=== PATIENT | male | born 1970 | race Two or more races ===

== ENCOUNTER 2020-10-13 15:42 | Emergency (ER) | payer MEDICAID, SELFPAY ==
--- NOTE | ~2020-10-13 | XR_ITS ---
EXAMINATION: PORTABLE CHEST 1 VIEW CLINICAL INFORMATION: chest pain cough sob . COMPARISON: 11/06/2008. TECHNIQUE: Portable frontal view of the chest was obtained. FINDINGS: The lungs are well expanded. No focal infiltrate, effusion, edema, or pneumothorax. Cardiac and mediastinal silhouettes are within normal limits for technique. No acute bony abnormality seen. XR/XR chest 1V IMPRESSION: No evidence of acute disease.
[2020-10-13 16:08] VITALS: BP 142/86; PULSE 88; RESP 20; TEMP 36.6; O2SAT 96; BMI 28.1
[2020-10-13 17:06] LABS: COVID-19 Test Positive (Negative); IDNOW Serial# 9DD0AD1C
[2020-10-13 17:30] LABS: Anion Gap 15 (12-20); Blood Urea Nitrogen 10 mg/dL (9-16); Calcium 8.9 mg/dL (8.4-10.2); Carbon Dioxide 23 mmol/L (22-29); Chloride 107 mmol/L (96-108); Creatinine Clr Calc Pharmacy 99.3; Estimated Glomerular Filt Rate > 60; Glucose Random 86 mg/dL (60-115); Potassium 4.3 mmol/L (3.3-5.1); Sodium 141 mmol/L (135-145)
--- NOTE | 2020-10-13 18:45 | ECG_ITS ---
Test Reason : CHEST PAIN Blood Pressure : / mmHG Vent. Rate : 065 BPM Atrial Rate : 065 BPM P-R Int : 112 ms QRS Dur : 074 ms QT Int : 410 ms P-R-T Axes : 026 024 011 degrees QTc Int : 426 ms Normal sinus rhythm Normal ECG When compared with ECG of 06-NOV-2008 09:07, Vent. rate has decreased BY 35 BPM QRS axis Shifted left T wave inversion less evident in Inferior leads Referred By: Osman Hammer Electronically Signed By:LAURA HAGEN
--- NOTE | 2020-10-13 19:09 | ED.URI ---
HPI - URI/Sore Throat General Chief Complaint: Upper Respiratory Symptoms Stated Complaint: cp, sob Time Seen by Provider: 10/13/20 18:37 Source: patient Mode of arrival: ambulatory Limitations: no limitations History of Present Illness HPI Narrative: Patient presents to the ED for coughing, chest pain, shortness of breath for the past 2 days. Patient unaware of any exposures to COVID. Patient denies any swelling of lower extremity, coughing up blood, or weakness Related Data Allergies Allergy/AdvReac Type Severity Reaction Status Date / Time diazepam [From VALIUM] Allergy Unknown ITCHING Unverified 04/09/20 16:00 Review of Systems Review of Systems: Yes all other systems are reviewed and are negative Constitutional: Constitutional: Reports as per HPI and Reports no additional constitutional complaints Eyes: Eyes: Reports as per HPI and Reports no additional eye complaints ENT: Reports system reviewed and no additional complaints, except as documented and Reports as per HPI Cardiovascular: Cardiovascular: Reports as per HPI, Reports no additional cardiovascular complaints and Reports chest pain Respiratory: Respiratory: Reports as per HPI, Reports no additional respiratory complaints and Reports cough Genitourinary: Genitourinary: Reports no additional male genitourinary complaints and Reports as per HPI Musculoskeletal: Musculoskeletal: Reports no additional musculoskeletal complaints and Reports as per HPI Neurologic: Reports system reviewed and no additional complaints, except as documented and Reports as per HPI Psychiatric: Psychiatric: Reports no additional psychiatric complaints and Reports as per HPI [facility] Social History Social History Advance Directives: No Advance Directives Information Provided: No Physical Exam Vital Signs: Vital Signs: Last Vital Signs Temp 98.9 F 10/13/20 20:56 Pulse 68 10/13/20 20:56 Resp 18 10/13/20 20:56 BP 127/79 10/13/20 20:56 Pulse Ox 100 10/13/20 20:56 Body Mass Index 28.1 Const: General: cooperative, healthy appearing, comfortable, no acute distress, well developed, alert, awake and Physically active Orientation/consciousness: patient oriented x3 HENMT: Head: Yes normal to inspection and Yes No palpable skull fracture present Eyes: General: appearance normal, both eyes and all related structures Neck: Neck: Yes normal visual inspection, Yes full ROM, Yes no lymphadenopathy, Yes no meningeal signs, Yes trachea midline, Yes supple and No tender Chest: Chest palpation & inspection: normal inspection of the chest and normal palpation of entire chest wall Resp: Effort & Inspection: normal respiratory effort and able to speak in complete sentences Auscultation: clear to auscultation bilaterally Cardio: Jugular venous distension: no JVD Heart sounds: S1 normal heart sound present and S2 normal heart sound present GI: Inspection: Yes normal to inspection and No abdominal wall ecchymosis Palpation (GI): Soft to palpation, not firm, nontender, no guarding and not rigid : General: No CVA tenderness and Yes no CVA tenderness Back/Spine/Pelvis: Back: no CVA tenderness, No CVA tenderness and No back tenderness Skin: General skin exam: no rashes or lesions noted and elasticity normal Neuro: General: patient oriented x3 and no meningeal signs Cranial nerves: Yes CN's II-XII intact bilaterally Extrem: General: Yes normal to inspection and Yes full ROM Psych: Appearance: grossly normal, well kempt and not disheveled Course Course Course Narrative: Patient had COVID swab that was positive. Patient's vital signs are stable. Reevaluation(s) Reevaluation #1: Patient's D-dimer negative. Vital signs stable. Troponin negative. Chest x-ray negative for pneumonia. EKG negative STEMI. Patient recommended quarantine for 14 days return to the ED she has chest pain or shortness of breath MDM - URI/Sore Throat Lab Data Result diagrams: 10/13/20 19:23 10/13/20 16:34 Labs: Lab Results 10/13/20 10/13/20 10/13/20 Range/Units 16:34 16:34 19:22 WBC (4.8-10.8) X10*3/uL RBC (4.60-5.80) X10*6/uL Hgb (14.0-18.0) g/dl Hct (42-52) % MCV (80-98) fL MCH (27.0-33.0) pg MCHC (31.0-36.0) g/dl RDW (11.0-16.0) % Plt Count (160-400) X10*3/uL MPV (9.4-12.4) fL Immature Gran % (Auto) (0.0-0.4) % Neut % (Auto) (45-73) % Lymph % (Auto) (20-40) % Dickinson % (Auto) (2-11) % Eos % (Auto) (0-4) % Baso % (Auto) (0-2) % Lymph # (Auto) (1.2-4.9) X10*3/uL Dickinson # (Auto) (0.1-1.2) X10*3/uL Eos # (Auto) (0.0-0.4) X10*3/uL Baso # (Auto) (0.0-0.2) X10*3/uL Abs Immat Gran (auto) (0.00-0.03) X10*3/uL Absolute Neuts (auto) (2.0-8.3) X10*3/uL Absolute Nucleated RBC (0.0-0.012) X10*3/uL Nucleated RBC % (auto) (0.0-0.2) /100WBC PT 12.8 (10.8-13.0) SEC INR 1.1 (0.9-1.1) APTT 37.8 (24.1-38.0) SEC D-Dimer < 200 NG/ML Sodium 141 (135-145) mmol/L Potassium 4.3 (3.3-5.1) mmol/L Chloride 107 (96-108) mmol/L Carbon Dioxide 23 (22-29) mmol/L Anion Gap 15 (12-20) BUN 10 (9-16) mg/dL Creatinine 0.95 (0.5-1.4) mg/dL Estim Creat Clear Calc 99.3 Estimated GFR > 60 Random Glucose 86 (60-115) mg/dL Calcium 8.9 (8.4-10.2) mg/dL Troponin I High Sens (<3.5-35.0) ng/L COVID-19 (TERELL) Positive A (Negative) COVID-19 Clin Com See Note 10/13/20 10/13/20 Range/Units 19:23 19:23 WBC 5.4 (4.8-10.8) X10*3/uL RBC 5.47 (4.60-5.80) X10*6/uL Hgb 17.1 (14.0-18.0) g/dl Hct 52.3 H (42-52) % MCV 95.6 (80-98) fL MCH 31.3 (27.0-33.0) pg MCHC 32.7 (31.0-36.0) g/dl RDW 12.5 (11.0-16.0) % Plt Count 180 (160-400) X10*3/uL MPV 10.0 (9.4-12.4) fL Immature Gran % (Auto) 0.2 (0.0-0.4) % Neut % (Auto) 46.8 (45-73) % Lymph % (Auto) 39.4 (20-40) % Dickinson % (Auto) 8.0 (2-11) % Eos % (Auto) 4.3 H (0-4) % Baso % (Auto) 1.3 (0-2) % Lymph # (Auto) 2.1 (1.2-4.9) X10*3/uL Dickinson # (Auto) 0.4 (0.1-1.2) X10*3/uL Eos # (Auto) 0.2 (0.0-0.4) X10*3/uL Baso # (Auto) 0.1 (0.0-0.2) X10*3/uL Abs Immat Gran (auto) 0.01 (0.00-0.03) X10*3/uL Absolute Neuts (auto) 2.5 (2.0-8.3) X10*3/uL Absolute Nucleated RBC 0.000 (0.0-0.012) X10*3/uL Nucleated RBC % (auto) 0.0 (0.0-0.2) /100WBC PT (10.8-13.0) SEC INR (0.9-1.1) APTT (24.1-38.0) SEC D-Dimer NG/ML Sodium (135-145) mmol/L Potassium (3.3-5.1) mmol/L Chloride (96-108) mmol/L Carbon Dioxide (22-29) mmol/L Anion Gap (12-20) BUN (9-16) mg/dL Creatinine (0.5-1.4) mg/dL Estim Creat Clear Calc Estimated GFR Random Glucose (60-115) mg/dL Calcium (8.4-10.2) mg/dL Troponin I High Sens 3.8 (<3.5-35.0) ng/L COVID-19 (TERELL) (Negative) COVID-19 Clin Com ECG Data Interpretation: Normal sinus rhythm. Normal EKG. Ventricular rate 65. Pr interval 112. QRS 74. QTC 426. Negative STEMI Discharge Plan Discharge Clinical Impression: COVID-19 Patient Disposition: Home, Self-Care Instructions: COVID-19 (Coronavirus Disease 2019) (ED) Additional Instructions: Return to ED immediately for any chest pain, shortness of breath, weakness, dizziness, any other concerning symptoms. Recommend 14 days self-isolation Referrals: [facility] [Primary Care Provider] - 2 days (Positive COVID) Stand Alone Forms: Work/School Release Interventions: ED Discharge Assessment Last Done: 10/13/20 20:58 Discharge Date/Time: 10/13/20 20:59 Print Language: Yoruba
[2020-10-13] MEDS: 0.9 % Sodium Chloride 1,000 ML 999 ML IV (19:20)
[2020-10-13 19:30] LABS: MANUAL DIFF FLAG NO
[2020-10-13 19:32] LABS: Basophils Absolute Auto 0.1 X10*3/uL (0.0-0.2); Basophils Percent Auto 1.3 % (0-2); Eosinophils Absolute Auto 0.2 X10*3/uL (0.0-0.4); Eosinophils Percent Auto 4.3 % (0-4); Hematocrit 52.3 % (42-52); Hemoglobin 17.1 g/dl (14.0-18.0); Imm Gran Abs Auto 0.01 X10*3/uL (0.00-0.03); Imm Gran Pct Auto 0.2 % (0.0-0.4); Lymphocytes Absolute Auto 2.1 X10*3/uL (1.2-4.9); Lymphocytes Percent Auto 39.4 % (20-40); Mean Corpuscular HGB Conc 32.7 g/dl (31.0-36.0); Mean Corpuscular Hemoglobin 31.3 pg (27.0-33.0); Mean Corpuscular Volume 95.6 fL (80-98); Monocytes Absolute Auto 0.4 X10*3/uL (0.1-1.2); Neutrophils Absolute Auto 2.5 X10*3/uL (2.0-8.3); Neutrophils Percent Auto 46.8 % (45-73); Platelet Count 180 X10*3/uL (160-400); Red Blood Count 5.47 X10*6/uL (4.60-5.80); Red Cell Distribution Width 12.5 % (11.0-16.0); White Blood Count 5.4 X10*3/uL (4.8-10.8)
--- NOTE | 2020-10-13 19:34 | PC.NURSE ---
Report taken from Zoila, this RN resuming care. Pt found sitting upright in the family room, speaking full sentences. IV established, labs obtained. IVF infusing per MAR. Pt aware of plan for CTA. Awaiting CT.
[2020-10-13 19:38] LABS: INTERNATIONAL NORM RATIO 1.1 (0.9-1.1); Prothrombin Time 12.8 SEC (10.8-13.0)
[2020-10-13 19:41] LABS: Partial Thromboplastin Time 37.8 SEC (24.1-38.0)
[2020-10-13 19:54] LABS: D Dimer < 200 NG/ML
[2020-10-13 19:55] LABS: Troponin-I High Sensitivity 3.8 ng/L (<3.5-35.0)
[2020-10-13 20:56] VITALS: BP 127/79; PULSE 68; RESP 18; TEMP 37.2; O2SAT 100
== END 2020-10-13 20:59 | disposition home or self-care (01) ==
PROVIDERS: Physician Assistant; Emergency Provider Internal Medicine
DX: U07.1 COVID-19 (principal); R07.9 Chest pain, unspecified
CPT/HCPCS: 36415; 71045; 80048; 84484; 85025; 85379; 85610; 85730; 87635; 93005; 96360; 99283; 99284

== ENCOUNTER 2022-10-03 17:45 | Emergency (ER) | payer MEDICAID, SELFPAY ==
[2022-10-03 18:48] VITALS: BP 154/105; PULSE 96; RESP 18; TEMP 36.2; O2SAT 99; BMI 28.1
--- NOTE | 2022-10-03 18:50 | ED_ITS ---
HPI - Ear Problem General Chief complaint: Ear Problems Stated complaint: ear infection? Time Seen by Provider: 10/03/22 18:50 Source: patient Mode of arrival: ambulatory Limitations: no limitations History of Present Illness HPI Narrative: 52-year-old male presenting to the ER with complaints of right ear pain for the past 2 days with a dry cough. Denies any fevers, trouble swallowing breathing, nasal congestion, sore throat, chest pain or shortness of breath, recent falls or trauma or any other symptoms complaints or concerns at this time. MD Complaint: ear pain Location: right ear Duration: constant Severity: moderate Relieving factors: nothing Exacerbating factors: nothing Discharge from ear: no Associated symptoms ear: other (Cough) Treatment prior to arrival: none Related Data Previous Rx's Medication Instructions Recorded acetaminophen 300 mg-codeine 30 mg 1 tab PO Q8H PRN pain #10 tabs 10/03/22 tablet amoxicillin 875 mg-potassium 1 tab PO BID 10 days #20 tabs 10/03/22 clavulanate 125 mg tablet Allergies Allergy/AdvReac Type Severity Reaction Status Date / Time diazepam [From VALIUM] Allergy Unknown ITCHING Verified 10/03/22 18:47 Review of Systems Review of Systems: Constitutional : No Weight loss, No Fever, No Chills, No Night Sweats, No Fatigue, No Malaise ENT/Mouth : No Hearing loss, + Ear Pain, No Nasal Congestion, No Sinus Pain, No Hoarseness, No sore throat, No Rhinorrhea, No Swallowing Difficulty Eyes: No Eye Pain, No Swelling, No Redness, No Foreign Body, No Discharge, No Vision Changes Cardiovascular : No Chest Pain, No SOB, No Dyspnea on Exertion, No Orthopnea, No Edema, No Palpitations Respiratory : + Cough, No Sputum, No Wheezing, No Smoke Exposure, No Dyspnea Gastrointestinal : No Nausea, No Vomiting, No Diarrhea, No Constipation, No abdominal Pain, No Hematochezia, No Melena Genitourinary : no irregular bleeding, No Dysuria, No Urinary Frequency, No Hematuria, No Urinary Incontinence, No Urgency, No Flank Pain, No Urinary Flow Changes, No Hesitancy Musculoskeletal : No joint pain, No Myalgias, No Joint Swelling Skin : No Skin Lesions, No rash Neuro : No Weakness, No Numbness, No Paresthesias, No Loss of Consciousness, No Dizziness, No Headache Psych : No Anxiety/Panic, No Depression, No SI/HI/AH/VH, No Social Issues, Heme/Lymph: No Bruising, No Bleeding,No Lymphadenopathy Endocrine : No Polyuria, No Polydipsia, No Temperature Intolerance Yes all other systems are reviewed and are negative [facility] Past Medical History Attestation statement: The following information was validated with the patient. Source: old records reviewed and nursing notes reviewed Social History Social History Advance Directives: No Advance Directives Information Provided: Yes Physical Exam Vital Signs: Vital Signs: Last Vital Signs Temp 97.2 F 10/03/22 18:48 Pulse 96 10/03/22 18:48 Resp 18 10/03/22 18:48 BP 154/105 H 10/03/22 18:48 Pulse Ox 99 10/03/22 18:48 O2 Del Method 10/03/22 18:48 BMI result Body Mass Index 28.1 Vital signs reviewed. Blood pressure 154/105. Pulse normal. Respiration normal. Oxygen normal. Temperature normal. Appearance: Alert. Oriented X3. No acute distress. Head: Normal external exam. Normocephalic. Atraumatic. Eyes: PERRLA. EOMI. Conjunctiva and sclera normal. Eyelids normal. ENT: EAC normal. Left tympanic membrane within normal limits. Right tympanic membrane erythematous with bulging and decreased loss of normal landmarks consistent with bullous otitis media. No tenderness or edema or erythema over the mastoid. Not consistent mastoiditis. Pharynx normal. Uvula midline. Moist mucous membranes. No lesions/ulcerations or masses noted on the tongue. Normal voice. No trismus noted. No drooling noted. No muffled voice noted. Neck: Normal inspection. Neck supple. FROM. No adenopathy. Thyroid Normal. No meningeal signs. CVS: Normal heart rate and rhythm. Heart sound normal. Pulses normal throughout. No murmurs/rales/gallops. Respiratory: No respiratory distress. Painless inspiration. Breath sounds normal. No wheezes/rales/rhonchi noted. Chest nontender. No accessory muscle usage noted or decreased air movement noted. Abdomen: Soft and nontender. Back: Full range of motion noted. Nontender. Skin: Skin warm and dry. Normal skin color. Normal skin turgor. No rashes/lesions/lacerations noted. Extremities: Extremities exhibit normal range of motion and nontender. Neuro: Oriented X 3. No motor deficit. No sensory deficit. Reflexes normal. Normal steady gait. No focal neuro deficits noted. CN's II-XII intact bilaterally? Vascular: + radial pulses. Normal cap refill. No cyanosis noted to upper extremity nails Course Course Course Narrative: Patient with right-sided otitis media. Not consistent with mastoiditis. Not consistent with meningitis. Neck is soft nontender supple full range of motion no meningeal signs noted. Posterior pharynx within normal limits no erythema noted. No trismus/drooling/stridor noted. Lungs are clear to auscultation. I offered the patient COVID/RSV/flu test and patient declined. Will DC home with Augmentin and symptomatic treatment instructions return if any new or worsening symptoms follow up with primary care provider. Patient understands agrees with this plan. Discharge Plan Discharge Clinical Impression: Acute right otitis media, Acute upper respiratory infection, Bullous myringitis of right ear Patient Disposition: Home, Self-Care Instructions: Ear Infection (ED), Upper Respiratory Infection (ED) Prescriptions: New amoxicillin-pot clavulanate 875-125 mg tablet 1 tab PO BID 10 Days Qty: 20 0RF acetaminophen-codeine 300-30 mg tablet 1 tab PO Q8H PRN (Reason: pain) Qty: 10 0RF Referrals: ED Physician,Generic [Physician] - (Your PCP as needed) Stand Alone Forms: Work/School Release Interventions: ED Discharge Assessment Last Done: 10/03/22 18:59 Discharge Date/Time: 10/03/22 19:00
== END 2022-10-03 19:00 | disposition home or self-care (01) ==
PROVIDERS: Emergency Provider Emergency Medicine Emergency Medical Services
DX: J06.9 Acute upper respiratory infection, unspecified (principal); H66.91 Otitis media, unspecified, right ear; Z79.899 Other long term (current) drug therapy
CPT/HCPCS: 99282; 99283

== ENCOUNTER 2022-12-11 17:43 | Emergency (ER) | payer MEDICAID, SELFPAY ==
[2022-12-11 17:57] VITALS: BP 132/79; PULSE 92; RESP 16; TEMP 36.8; O2SAT 100; BMI 26.1
--- NOTE | 2022-12-11 19:05 | ED.GENADULT ---
HPI - General Adult General Chief complaint: Ear Problems Stated complaint: infection on right side of face Time Seen by Provider: 12/11/22 18:58 Source: patient, RN notes reviewed and old records reviewed Mode of arrival: ambulatory Limitations: no limitations History of Present Illness HPI narrative: 52-year-old male presents for evaluation of right ear pain Patient states he was seen here a few months back and was diagnosed with an ear infection He reports taking his complete course of antibiotics He states that a few days ago his pain returned He feels that he has pain to the entire right side of his year, head, and face His pain is aching, 10/10 Denies any fevers, chills Denies any dental pain Patient reports that he has been very congested for the last few weeks Related Data Previous Rx's Medication Instructions Recorded acetaminophen 300 mg-codeine 30 mg 1 tab PO Q8H PRN pain #10 tabs 10/03/22 tablet amoxicillin 875 mg-potassium 1 tab PO BID 10 days #20 tabs 10/03/22 clavulanate 125 mg tablet amoxicillin 875 mg-potassium 1 tab PO BID 10 days #20 tabs 12/11/22 clavulanate 125 mg tablet naproxen 500 mg tablet 500 mg PO BID PRN pain #14 tabs 12/11/22 Allergies Allergy/AdvReac Type Severity Reaction Status Date / Time diazepam [From VALIUM] Allergy Unknown ITCHING Verified 10/03/22 18:47 Review of Systems Constitutional: Constitutional: Denies chills, Denies fever(s) and Denies headache(s) ENT: Reports ear discharge, Reports otalgia, Denies headache(s) and Denies mouth pain Cardiovascular: Cardiovascular: Denies dyspnea Respiratory: Respiratory: Denies cough and Denies dyspnea Gastrointestinal: Gastrointestinal: Denies abdominal pain, Denies nausea and Denies vomiting Neurologic: Denies headache(s) [facility] Social History Social History Advance Directives: No Advance Directives Information Provided: No Physical Exam ED Vital Signs: Vital Signs - 24 hr 12/11/22 17:57 Temperature 98.3 F Pulse Rate 92 Respiratory Rate 16 Blood Pressure 132/79 Pulse Oximetry 100 Oxygen Delivery Method Room Air BMI result Body Mass Index 26.1 Const General: healthy appearing, comfortable, no acute distress, alert and awake Nutritional Appearance: well nourished Orientation/consciousness: patient oriented x3 HENMT Head: Yes normocephalic and Yes atraumatic Ears: external ears normal, TM normal on the left, EAC's normal and TM abnormal (Right TM with the following abnormalities. No perforation) bulging, bullous, dull, wth effusion and erythematous Throat: Yes posterior oropharynx normal Eyes Eyelids: Yes eyelids normal Conjunctivae: conjunctivae normal Sclerae: sclerae normal Corneas: corneas normal Pupils: Equal, round and reactive pupils present EOM: EOMs intact bilaterally Neck Neck: Yes full ROM Resp Effort & Inspection: normal respiratory effort, able to speak in complete sentences and not labored Skin General skin exam: no rashes or lesions noted and elasticity normal Neuro General: patient oriented x3 Cranial nerves: Yes Equal, round and reactive pupils present and Yes Bilaterally intact EOM present Cognition (Neuro): normal cognition Medical Decision Making Medical Decision Making MDM Narrative: Patient again has acute otitis media. No evidence of mastoiditis or otitis externa. We will treat with Augmentin. The patient will be started on a daily allergy medication to help prevent recurrence of acute otitis media. Differential Diagnosis Acute otitis media Acute otitis externa Mastitis Allergies Discharge Plan Discharge Clinical Impression: Otitis media Patient Disposition: Home, Self-Care Instructions: Ear Infection (ED) Additional Instructions: Take Augmentin twice daily for the next 10 days. You should also start taking an [id number] allergy medication daily to prevent recurrence of ear infections Use naproxen as needed for pain Follow-up with your primary doctor Prescriptions: New amoxicillin-pot clavulanate 875-125 mg tablet 1 tab PO BID 10 Days Qty: 20 0RF naproxen 500 mg tablet 500 mg PO BID PRN (Reason: pain) Qty: 14 0RF No Action amoxicillin-pot clavulanate 875-125 mg tablet 1 tab PO BID 10 Days Qty: 20 0RF acetaminophen-codeine 300-30 mg tablet 1 tab PO Q8H PRN (Reason: pain) Qty: 10 0RF
== END 2022-12-11 19:18 | disposition home or self-care (01) ==
PROVIDERS: Emergency Provider Internal Medicine
DX: H66.93 Otitis media, unspecified, bilateral (principal); Z79.899 Other long term (current) drug therapy
CPT/HCPCS: 99282

== ENCOUNTER 2024-04-30 07:42 | Emergency (ER) | payer MEDICAID, SELFPAY ==
--- NOTE | ~2024-04-30 | XR_ITS ---
EXAMINATION: XR CHEST CLINICAL INFORMATION: Chest pain and shortness of breath COMPARISON: 10/13/2020 TECHNIQUE: Frontal view of the chest was obtained. FINDINGS: Lungs clear. Heart and pulmonary vessels normal. XR/XR chest 1V IMPRESSION: No active disease. Electronically signed by: Guillermo Still MD 04/30/2024 01:41 PM EDT
--- NOTE | 2024-04-30 07:45 | ECG_ITS ---
Test Reason : CHEST PAIN Blood Pressure : / mmHG Vent. Rate : 080 BPM Atrial Rate : 080 BPM P-R Int : 122 ms QRS Dur : 076 ms QT Int : 376 ms P-R-T Axes : 046 017 010 degrees QTc Int : 433 ms Normal sinus rhythm Normal ECG When compared with ECG of 13-OCT-2020 15:55, No significant change was found Referred By: Generic ED Physician Electronically Signed By:ALVARO LUNA MD
[2024-04-30 07:55] VITALS: BP 145/84; PULSE 84; RESP 22; TEMP 36.8; O2SAT 100; BMI 26.8
[2024-04-30 08:18] LABS: Basophils Absolute Auto 0.2 X10*3/uL (0.0-0.2); Basophils Percent Auto 1.7 % (0-2); Eosinophils Absolute Auto 0.5 X10*3/uL (0.0-0.4); Eosinophils Percent Auto 5.1 % (0-4); Hematocrit 50.8 % (42.0-52.0); Hemoglobin 17.9 g/dl (14.0-18.0); Imm Gran Abs Auto 0.04 X10*3/uL (0.00-0.03); Imm Gran Pct Auto 0.4 % (0.0-0.4); Lymphocytes Absolute Auto 2.7 X10*3/uL (1.2-4.9); Lymphocytes Percent Auto 30.1 % (20-40); MANUAL DIFF FLAG NO; Mean Corpuscular HGB Conc 35.2 g/dl (31.0-36.0); Mean Corpuscular Hemoglobin 32.3 pg (27.0-33.0); Mean Corpuscular Volume 91.5 fL (80.0-98.0); Mean Platelet Volume 8.9 fL (9.4-12.4); Monocytes Absolute Auto 0.7 X10*3/uL (0.1-1.2); Monocytes Percent Auto 7.5 % (2-11); Neutrophils Percent Auto 55.2 % (45-73); Platelet Count 324 X10*3/uL (160-400); Red Blood Count 5.55 X10*6/uL (4.60-5.80); Red Cell Distribution Width 12.4 % (11.0-16.0); White Blood Count 9.1 X10*3/uL (4.8-10.8)
[2024-04-30 08:31] LABS: Prothrombin Time 11.5 SEC (10.9-12.4)
[2024-04-30 08:46] LABS: COVID-19 Test Negative (Negative); IDNOW Serial# 152EDE1D
[2024-04-30 08:57] LABS: B Type Natriuretic Peptide 11 pg/mL (<100)
[2024-04-30 09:00] LABS: Alanine Aminotransferase 21 U/L (0-40); Albumin Level 4.5 g/dL (3.5-5.0); Alkaline Phosphatase 84 U/L (39-117); Anion Gap 13 (12-20); Aspartate Amino Transferase 19 U/L (5-37); Bilirubin Direct 0.2 mg/dL (0.0-0.5); Bilirubin Total 0.5 mg/dL (0.0-1.0); Blood Urea Nitrogen 11 mg/dL (9-16); Carbon Dioxide 20 mmol/L (22-29); Chloride 108 mmol/L (96-108); Estimated Glomerular Filt Rate > 60; Glucose Random 116 mg/dL (60-115); Magnesium 2.3 mg/dL (1.6-2.6); Potassium 3.4 mmol/L (3.3-5.1); Sodium 138 mmol/L (135-145)
[2024-04-30 09:17] LABS: Troponin-I High Sensitivity < 2.7 ng/L (<3.5-35.0)
--- NOTE | 2024-04-30 10:45 | ED_ITS ---
HPI - Chest Pain General Chief Complaint: Chest Pain Stated Complaint: Chest pain, SOB Time Seen by Provider: 04/30/24 10:45 Source: patient Mode of arrival: ambulatory Limitations: no limitations History of Present Illness ED Provider: Gene MILLER narrative: Patient is a 53-year-old male presenting to the ED with complaint of chest pain and dyspnea with exertion for the past 3 days. Denies any symptoms when at rest. Reports recent URI symptoms with coughing. Denies fevers. Denies abdominal pain, nausea, vomiting. MD complaint: chest pain Onset (ago): day(s) Timing of current episode: episodic Onset: during exertion Pain location: substernal Pain radiation: none Quality: tightness Relieving factors: rest Exacerbating factors: exertion Context: recent illness Associated symptoms: dyspnea Treatment prior to arrival: none Related Data Previous Rx's ?Medication ?Instructions ?Recorded acetaminophen 300 mg-codeine 30 mg 1 tab PO Q8H PRN pain #10 tabs 10/03/22 tablet amoxicillin 875 mg-potassium 1 tab PO BID 10 days #20 tabs 10/03/22 clavulanate 125 mg tablet amoxicillin 875 mg-potassium 1 tab PO BID 10 days #20 tabs 12/11/22 clavulanate 125 mg tablet naproxen 500 mg tablet 500 mg PO BID PRN pain #14 tabs 12/11/22 albuterol sulfate 90 mcg/actuation 2 puff inhalation Q4-6H PRN 04/30/24 aerosol inhaler shortness of breath or wheezing #6.7 grams azithromycin 250 mg tablet See Rx Instructions PO .COMPLEX #6 04/30/24 tabs benzonatate 100 mg capsule 100 mg PO TID PRN cough #14 caps 04/30/24 prednisone 20 mg tablet 40 mg (2 x 20 mg) PO DAILY #10 tabs 04/30/24 Allergies Allergy/AdvReac Type Severity Reaction Status Date / Time diazepam [From VALIUM] Allergy Unknown ITCHING Verified 04/30/24 07:57 Review of Systems 2 Review of Systems: As per hPI. Yes all other systems are reviewed and are negative Constitutional: Constitutional: Reports as per HPI PMF Social History Social History Advance Directives: No Physical Exam 2 Vital Signs: Vital Signs: Last Vital Signs Temp 98.2 F 04/30/24 07:55 Pulse 66 04/30/24 12:14 Resp 14 04/30/24 12:14 BP 135/88 04/30/24 12:14 Pulse Ox 99 04/30/24 12:14 O2 Del Method Room Air 04/30/24 12:14 BMI result Body Mass Index 26.8 Vital signs have been reviewed and appear to be correct. Blood pressure normal. Heart rate normal. Respiratory rate normal. Temperature normal. Oxygen saturation normal. Const: General: cooperative, healthy appearing and no acute distress O rientation/consciousness: oriented to person, oriented to place, oriented to time and patient oriented x3 Limitations: no limitations HEENT: Head: Yes normocephalic and Yes atraumatic Ears: external ears normal General nose exam: Normal external nose present Face and sinus: Yes face symmetric Mouth: oropharynx normal and moist mucous membranes Throat: Yes uvula midline Eyes: Pupils: Equal, round and reactive pupils present Neck: Neck: Yes normal visual inspection and Yes supple Resp: Effort & Inspection: normal respiratory effort and able to speak in complete sentences Auscultation: clear to auscultation bilaterally and wheezes scattered wheezes Cardio: Rate: regular rate Rhythm: regular rhythm Heart sounds: S1 normal heart sound present and S2 normal heart sound present GI: Palpation (GI): Soft to palpation and nontender Auscultation: n ormoactive bowel sounds : General: Yes no CVA tenderness Back/Spine/Pelvis: Back: no CVA tenderness Skin: General skin exam: elasticity normal and turgor normal Neuro: General: oriented to person, oriented to place, oriented to time, patient oriented x3, moves all extremities, no focal motor deficits and CN's II- XI intact bilaterally Cranial nerves: Yes Equal, round and reactive pupils present Cognition (Neuro): normal cognition Extrem: General: Yes full ROM, Yes no pedal edema and Yes no calf tenderness Psych: Mental Status: mental status grossly normal Affect: normal affect Thought process: Normal thought process present Medical Decision Making Medical Decision Making MDM Narrative: Patient is a 53-year-old male presenting to the ED with complaint of chest pain and dyspnea with exertion for the past 3 days. On exam patient is awake, A+Ox3, VS WNL, afebrile, normal neurological exam without focal deficits, physical exam findings as above. Given reported symptoms and physical exam findings, initial differential includes ACS, chest wall pain, costochondritis, bronchitis, pneumonia. PE unlikely, Wells score 0. Labs notable for no leukocytosis, no anemia, negative troponin. Covid negative. X-ray chest notable for no evidence of pneumonia. My interpretation is in agreement with the radiologist's interpretation. EKG shows normal sinus rhythm. Heart score of 2. Stable for discharge home. Patient states he does not have a primary care provider, patient was provided with resources to establish care at his visit today. Given scattered wheezes, will treat for bronchitis at this time. Return precautions discussed at bedside. Patient verbalized understanding of and agreement with plan. Differential Diagnosis Differential Diagnoses: The differential diagnosis associated with the presentation includes As per [facility] Admission/Observation Consideration of admission/observation: Escalation of care including admission/observation considered Patient would have been admitted to the hospital had their work up had any findings where hospital admission was appropriate and their clinical presentation warranted hospital admission. Lab Data [facility] Lab Attestation statement: I reviewed the patient's lab results. As per [facility] 04/30/24 08:10 04/30/24 08:10 Labs: Lab Results 04/30/24 Range/Units 08:10 WBC 9.1 (4.8-10.8) X10*3/uL RBC 5.55 (4.60-5.80) X10*6/uL Hgb 17.9 (14.0-18.0) g/dl Hct 50.8 (42.0-52.0) % MCV 91.5 (80.0-98.0) fL MCH 32.3 (27.0-33.0) pg MCHC 35.2 (31.0-36.0) g/dl RDW 12.4 (11.0-16.0) % Plt Count 324 (160-400) X10*3/uL MPV 8.9 L (9.4-12.4) fL Immature Gran % (Auto) 0.4 (0.0-0.4) % Neut % (Auto) 55.2 (45-73) % Lymph % (Auto) 30.1 (20-40) % Sanders % (Auto) 7.5 (2-11) % Eos % (Auto) 5.1 H (0-4) % Baso % (Auto) 1.7 (0-2) % Lymph # (Auto) 2.7 (1.2-4.9) X10*3/uL Sanders # (Auto) 0.7 (0.1-1.2) X10*3/uL Eos # (Auto) 0.5 H (0.0-0.4) X10*3/uL Baso # (Auto) 0.2 (0.0-0.2) X10*3/uL Abs Immat Gran (auto) 0.04 H (0.00-0.03) X10*3/uL Absolute Neuts (auto) 5.0 (2.0-8.3) x10*3/uL Absolute Nucleated RBC 0.000 (0.0-0.012) X10*3/uL Nucleated RBC % (auto) 0.0 (0.0-0.2) /100WBC PT 11.5 (10.9-12.4) SEC INR 1.0 (0.9-1.1) Sodium 138 (135-145) mmol/L Potassium 3.4 (3.3-5.1) mmol/L Chloride 108 (96-108) mmol/L Carbon Dioxide 20 L (22-29) mmol/L Anion Gap 13 (12-20) BUN 11 (9-16) mg/dL Creatinine 0.87 (0.5-1.4) mg/dL Estim Creat Clear Calc 96.0 Estimated GFR > 60 Random Glucose 116 H (60-115) mg/dL Calcium 9.0 (8.4-10.2) mg/dL Magnesium 2.3 (1.6-2.6) mg/dL Total Bilirubin 0.5 (0.0-1.0) mg/dL Direct Bilirubin 0.2 (0.0-0.5) mg/dL AST 19 (5-37) U/L ALT 21 (0-40) U/L Alkaline Phosphatase 84 (39-117) U/L Troponin I High Sens < 2.7 (<3.5-35.0) ng/L B-Natriuretic Peptide 11 (<100) pg/mL Total Protein 7.0 (6.5-8.0) g/dL Albumin 4.5 (3.5-5.0) g/dL COVID-19 (TERELL) Negative (Negative) COVID-19 Clin Com See Note Independent Interpretation I performed an independent interpretation of an: Plain X-Ray Interpretation: No evidence of pneumonia on CXR Radiology Impression Discussion of test interpretation with radiology: I have reviewed the radiologist's reading. Radiologist Impression: XR/XR chest 1V IMPRESSION: No active disease. External Record Review External record reviewed: Inpatient record, Office record and Outpatient record Prescription Management I considered prescription management with: Antibiotic and Other Scores Heart Score History: -1- moderately suspicious ECG: -0- normal Age: -1- >45 - <65 Risk factory: -0- no risk factors known Troponin: -0- < or = normal limit Score: 2 Risk: 1.7% Discharge Plan Discharge Clinical Impression: Bronchitis, Atypical chest pain Patient Disposition: Home, Self-Care Instructions: How to Use a Metered-Dose Inhaler (ED), Acute Bronchitis (ED), Noncardiac Chest Pain (ED) Additional Instructions: You were evaluated in the emergency department today for chest pain. You are being treated for bronchitis with an antibiotic, please complete the full course as prescribed. You are also being prescribed a short course of steroids to decrease inflammation. You are being prescribed an inhaler which you can use every 4-6 hours as needed for shortness of breath. Please follow-up with your primary care provider this week. Return to the emergency department if you develop worsening shortness of breath, difficulty breathing, chest pain, fever not improved with Tylenol or ibuprofen, or any other concerning symptoms. Prescriptions: New azithromycin 250 mg tablet See Rx Instructions .ROUTE .COMPLEX Qty: 6 0RF Rx Instructions: For 250 mg dose pack: take 500 mg today (day 1), then 250 mg for 4 days (days 2-5) prednisone 20 mg tablet 40 mg PO DAILY Qty: 10 0RF albuterol sulfate 90 mcg/actuation HFA aerosol inhaler 2 puff inhalation Q4-6H PRN (Reason: shortness of breath or wheezing) Qty: 6.7 0RF benzonatate 100 mg capsule 100 mg PO TID PRN (Reason: cough) Qty: 14 0RF No Action amoxicillin-pot clavulanate 875-125 mg tablet 1 tab PO BID 10 Days Qty: 20 0RF acetaminophen-codeine 300-30 mg tablet 1 tab PO Q8H PRN (Reason: pain) Qty: 10 0RF amoxicillin-pot clavulanate 875-125 mg tablet 1 tab PO BID 10 Days Qty: 20 0RF naproxen 500 mg tablet 500 mg PO BID PRN (Reason: pain) Qty: 14 0RF Referrals: [facility] Family [facility] [Provider Group] [facility] Primary Care, Magy [Provider Group] [facility] Primary Care,Gianna [Provider Group] Print Language: Guatemalan
[2024-04-30 12:14] VITALS: BP 135/88; PULSE 66; RESP 14; O2SAT 99
[2024-04-30 14:10] VITALS: BP 135/88; PULSE 66; RESP 14; TEMP 37; O2SAT 99
== END 2024-04-30 14:11 | disposition home or self-care (01) ==
PROVIDERS: Emergency Provider Emergency Medicine
DX: J40 Bronchitis, not specified as acute or chronic (principal); R07.89 Other chest pain; R06.02 Shortness of breath; Z11.52 Encounter for screening for COVID-19; Z79.899 Other long term (current) drug therapy
CPT/HCPCS: 36415; 71045; 80053; 82248; 83735; 83880; 84484; 85025; 85610; 87635; 93005; 99283; 99284

== ENCOUNTER → 2024-04-30 07:45 | Outpatient (BNV) | payer MEDICAID, SELFPAY | PROVIDERS: Emergency Provider Emergency Medicine; Visit Provider Internal Medicine Cardiovascular Disease | DX: R07.9 Chest pain, unspecified (principal) | CPT/HCPCS: 93010 ==

== ENCOUNTER 2024-12-31 07:44 | Emergency (ER) | payer SELFPAY ==
[2024-12-31 08:15] VITALS: BP 146/104; PULSE 80; RESP 16; TEMP 36.6; O2SAT 97; BMI 28.1
--- NOTE | 2024-12-31 10:32 | ED_ITS ---
HPI - Ear Problem General Chief complaint: Ear Problems Stated complaint: Ear infection Time Seen by Provider: 12/31/24 09:49 Source: patient and RN notes reviewed Mode of arrival: ambulatory Limitations: no limitations History of Present Illness ED Provider: Asuncion Max PA-C HPI Narrative: This is a 54-year-old male, with no known medical problems, who presents emergency department with concerns of right ear pain for the last 3 days. Patient reports that he heard a popping sensation and he proceeded to use a Q- tip afterwards, denies placing any foreign objects into his ear prior. He states that he has had drainage, clear, coming from his right ear. He does endorse decreased hearing. No fevers or chills. Denies chest pain, shortness of breath, lightheadedness, dizziness, or headaches. Denies history of similar symptoms in the past. He used peroxide in his ear which provided him without any relief. He has a history of ear infections in the past and states that this pain is somewhat similar however he has never had the popping sensation that he has experienced. He also reports that he has some pain developing in his left ear as well. No other complaints or concerns at this time. MD Complaint: ear pain, ear discharge and decreased hearing Location: bilateral Duration: constant Severity: moderate Relieving factors: nothing Exacerbating factors: nothing Discharge from ear: yes - clear Associated symptoms ear: decreased hearing, external ear tenderness and ear swelling Related Data Previous Rx's ?Medication ?Instructions ?Recorded acetaminophen 300 mg-codeine 30 mg 1 tab PO Q8H PRN pain #10 tabs 10/03/22 tablet amoxicillin 875 mg-potassium 1 tab PO BID 10 days #20 tabs 10/03/22 clavulanate 125 mg tablet amoxicillin 875 mg-potassium 1 tab PO BID 10 days #20 tabs 12/11/22 clavulanate 125 mg tablet naproxen 500 mg tablet 500 mg PO BID PRN pain #14 tabs 12/11/22 albuterol sulfate 90 mcg/actuation 2 puff inhalation Q4-6H PRN 04/30/24 aerosol inhaler shortness of breath or wheezing #6.7 grams azithromycin 250 mg tablet See Rx Instructions PO .COMPLEX #6 04/30/24 tabs benzonatate 100 mg capsule 100 mg PO TID PRN cough #14 caps 04/30/24 prednisone 20 mg tablet 40 mg (2 x 20 mg) PO DAILY #10 tabs 04/30/24 acetaminophen 500 mg tablet 1,000 mg (2 x 500 mg) PO Q8H PRN 12/31/24 (Tylenol Extra Strength) pain #30 tabs amoxicillin 875 mg-potassium 1 tab PO BID 10 days #20 tabs 12/31/24 clavulanate 125 mg tablet ibuprofen 600 mg tablet 600 mg PO Q6H PRN pain #30 tabs 12/31/24 Allergies Allergy/AdvReac Type Severity Reaction Status Date / Time diazepam [From VALIUM] Allergy Unknown ITCHING Verified 12/31/24 08:17 Review of Systems Review of Systems: Yes all other systems are reviewed and are negative Constitutional: Constitutional: Reports as per [facility] Social History Social History Advance Directives: No Advance Directives Information Provided: No Physical Exam Vital Signs: Vital Signs: Last Vital Signs Temp 98 F 12/31/24 10:58 Pulse 80 12/31/24 10:58 Resp 16 12/31/24 10:58 BP 146/104 H 12/31/24 10:58 Pulse Ox 97 12/31/24 10:58 O2 Del Method Room Air 12/31/24 10:58 BMI result Body Mass Index 28.1 Const: General: cooperative, comfortable and no acute distress Orientation/consciousness: patient oriented x3 Limitations: no limitations HEENT: Other: Left ear, TM is erythematous, and bulging. No pain with tragal manipulation or pulling of the pinna. No mastoid tenderness on the left. Right ear, TM is nonerythematous however appears to have a defect in it, question of a TM perforation. He does have pain pulling at the ear lobe, pinna, and tragus. No mastoid tenderness, erythema or fluctuance. Head: Yes normal to inspection, Yes normocephalic and Yes atraumatic Ears: hearing grossly normal bilaterally General nose exam: Normal external nose present Face and sinus: Yes normal facial exam Mouth: Normal oral and palatal mucosa present, oropharynx normal and moist mucous membranes Throat: Yes posterior oropharynx normal Eyes: General: appearance normal, both eyes and all related structures Eyelids: Yes eyelids normal Conjunctivae: conjunctivae normal Sclerae: sclerae normal Pupils: Equal, round and reactive pupils present EOM: EOMs intact bilaterally Neck: Neck: Yes normal visual inspection, Yes full ROM and Yes no lymphadenopathy Lymphatic: no lymphadenopathy noted Chest: Chest palpation & inspection: normal inspection of the chest Resp: Effort & Inspection: normal respiratory effort and able to speak in complete sentences Auscultation: clear to auscultation bilaterally, no crackles, no rales, no rhonchi and no wheezes Cardio: Rate: regular rate Rhythm: regular rhythm Heart sounds: S1 normal heart sound present and S2 normal heart sound present GI: Inspection: Yes normal to inspection Skin: General skin exam: no rashes or lesions noted Trauma: no lacerations or abrasions Wounds: no wounds Neuro: General: patient oriented x3 and moves all extremities Cranial nerves: Yes Equal, round and reactive pupils present Extrem: General: Yes normal to inspection Right upper extremity: normal to inspection Left upper extremity: normal to inspection Right lower extremity: normal to inspection Left lower extremity: normal to inspection Medical Decision Making Medical Decision Making MDM Narrative: This is a 54-year-old male who presents emergency department with concerns of right ear pain for the last several days. On arrival, patient mildly hypertensive at 146/104. All other vital signs within normal limits. He is speaking full sentences under no acute distress. Right TM has defect in it, concerning for TM perforation, left TM is erythematous and bulging, appears to be intact. No mastoid tenderness. Differential diagnoses include TM perforation, otitis media, otitis externa, mastoiditis-unlikely. Will treat with oral Augmentin, given referral to ENT. Given strict return precautions. He understands and agrees with plan. Patient stable for discharge. Differential Diagnosis Differential Diagnoses: The differential diagnosis associated with the presentation includes See above Discharge Plan Discharge Clinical Impression: Ear drum perforation Otitis media Qualifiers: Otitis media type: unspecified Chronicity: acute Qualified Code(s): H66.90 - Otitis media, unspecified, unspecified ear Patient Disposition: Home, Self-Care Instructions: Ruptured Eardrum (ED), Ear Infection (ED) Additional Instructions: You were seen in the emergency department due to your pain. Your left ear is infected. Your right ear drum appears to be perforated. No swimming or submerging your head in water until you follow-up with the ENT. Please take prescribed antibiotic as directed, finish the entire course even if your symptoms improve. Do not place any objects or solutions into your ears as this can worsen your symptoms. Follow-up with the [facility], they can help assist in primary care. You may also follow-up with the [place]. Call today to make an appointment. If any new or worsening symptoms occur including but not limited to worsening pain, high fevers, swelling around your ear, please seek emergent care. [facility] [address] [phone] Prescriptions: New amoxicillin-pot clavulanate 875-125 mg tablet 1 tab PO BID 10 Days Qty: 20 0RF acetaminophen [Tylenol Extra Strength] 500 mg tablet 1,000 mg PO Q8H PRN (Reason: pain) Qty: 30 0RF ibuprofen 600 mg tablet 600 mg PO Q6H PRN (Reason: pain) Qty: 30 0RF No Action amoxicillin-pot clavulanate 875-125 mg tablet 1 tab PO BID 10 Days Qty: 20 0RF acetaminophen-codeine 300-30 mg tablet 1 tab PO Q8H PRN (Reason: pain) Qty: 10 0RF amoxicillin-pot clavulanate 875-125 mg tablet 1 tab PO BID 10 Days Qty: 20 0RF naproxen 500 mg tablet 500 mg PO BID PRN (Reason: pain) Qty: 14 0RF azithromycin 250 mg tablet See Rx Instructions .ROUTE .COMPLEX Qty: 6 0RF Rx Instructions: For 250 mg dose pack: take 500 mg today (day 1), then 250 mg for 4 days (days 2-5) prednisone 20 mg tablet 40 mg PO DAILY Qty: 10 0RF albuterol sulfate 90 mcg/actuation HFA aerosol inhaler 2 puff inhalation Q4-6H PRN (Reason: shortness of breath or wheezing) Qty: 6.7 0RF benzonatate 100 mg capsule 100 mg PO TID PRN (Reason: cough) Qty: 14 0RF Stand Alone Forms: Work/School Release Interventions: ED Discharge Assessment Last Done: 12/31/24 10:58 Discharge Date/Time: 12/31/24 10:59 Print Language: Sinhala
[2024-12-31 10:58] VITALS: BP 146/104; PULSE 80; RESP 16; TEMP 36.6; O2SAT 97
== END 2024-12-31 10:59 | disposition home or self-care (01) ==
PROVIDERS: Emergency Provider Emergency Medicine Emergency Medical Services
DX: H72.91 Unspecified perforation of tympanic membrane, right ear (principal); H66.91 Otitis media, unspecified, right ear
CPT/HCPCS: 99282; 99283